=== PATIENT | male | born 1945 | race Caucasian/White ===

== ENCOUNTER 2019-04-16 10:57 | Emergency (ER) | payer MEDICARE, BC ==
--- OUTSIDE RECORDS SUMMARY | 2019-04-16 11:51 | XMS REPORT | Continuity of Care Document ---
:1945 External Reference #:[id number] Author Name Alex Harrington MD Address [address] [place] [id number] Problems Description No Information Available Social History Type Date Description Comments Sex Unknown Tobacco Use Start: Unknown End: Former Cigarette Smoker X 30 YRS 1 PPD QUIT Unknown 20 YRS AGO. ETOH Use Rarely consumes alcohol Recreational Drug Use Denies Drug Use Tobacco Use Start: Unknown Patient was a smoker, current status is unknown Tobacco Use Start: Unknown End: Patient is a former smoker Smoking Status Reviewed: 05/05/18 Patient is a former smoker Allergies, Adverse Reactions, Alerts Description No Known Drug Allergies Medications Active Medications SIG Qnty Indications Ordering Date Provider Onetouch Ultra Blue test bg twice daily 100units Len, 11/30/2018 and as needed TONY Gonzalez Strips Insulin use twice a day with 200units Len, 11/30/2018 Syringe-Needle insulin TONY Gonzalez U-100 31G X 1/4" 1 ML Misc Lancets 30G testing three times a 100units Len, 11/28/2018 30G day e11.649 TONY Gonzalez Misc Pioglitazone HCL take one tablet by 90tabs Len, 02/01/2017 mouth every evening MD Alex 45mg Tablets Atorvastatin take one tablet by 90tabs Len, 09/29/2015 Calcium mouth every day/ due TONY Gonzalez 80mg for ltp bloodwork Tablets Cpap and related supplies. 1units G47.33 Len, 01/22/2014 Device juan luis:99mos setting 15 TONY Gonzalez Novolin 70/30 inject 69 units 90units Len, 06/26/2013 subcutaneously in am TONY Gonzalez (70-30)100Unit/ML 67 units in the Suspension evening Enalapril Maleate 1 by mouth every day. 90tabs Len, 08/05/2009 TONY Gonzalez 20mg Tablets Nitrostat 1 tab sl stat as 1BTL Len, 06/05/2009 0.4mg needed for c.p may MD Alex Tablets Sub repeat q5min x 2 if no relief after 3 tabs call 911. Aspirin 1 PO qd Len, 05/27/2008 325mg MD Alex Tablets Metoprolol take one tablet by 90tabs Len, 05/27/2008 Succinate ER mouth every day TONY Gonzalez 25mg Tablets ER 24HR Furosemide 1 by mouth every day Unknown 40mg Tablets History Medications Freestyle Lite Test use as directed 100units Lisa Harrington, 2018 - three times a day [employer] 11/30/2018 Strips Immunizations CPT Code Status Date Vaccine Lot # [id number] Given 07/17/2018 Pneumococcal 23 Immunization Adult Or [id number] Immunosuppressed Patient 54756 Given 04/04/2018 Fluzone Highdose Age 65 And Over Preservative & Antibiotic Free 95205 Given 05/21/2017 Prevnar 13 Pneumococal Conjugate Vaccine [id number] 62268 Given 04/20/2017 Afluria Or Fluvirin Flu Vac Intramuscular 51876 Given 04/26/2016 Afluria Or Fluvirin Flu Vac Intramuscular 64483 Given 04/17/2016 Afluria Or Fluvirin Flu Vac Intramuscular 98502 Given 04/22/2015 Influenza Vac, Quadrivalent, Split, 0.5mL Dosage, [id number] Im Use 45361 Given 05/07/2014 Pneumococcal 23 Immunization Adult Or [id number] Immunosuppressed Patient Q2038 Given 06/20/2013 Fluzone Trivalent Immunization [id number] Q2038 Given 04/17/2012 Fluzone Trivalent Immunization [id number] Q2038 Given 04/15/2011 Fluzone Trivalent Immunization [id number] 70801 Given 05/19/2010 Tdap (Adacel) Ages 7 And Above Only [id number] 82047 Given 04/27/2010 Afluria Or Fluvirin Flu Vac Intramuscular 52832 Given 04/27/2010 Afluria Or Fluvirin Flu Vac Intramuscular [id number] 67048 Given 06/24/2009 Afluria Or Fluvirin Flu Vac Intramuscular 39010 Given 06/03/2009 Administration Swine Flu Vaccine [id number] 07155 Given 05/27/2008 Afluria Or Fluvirin Flu Vac Intramuscular [id number] 62150 Refused 12/21/2016 Prevnar 13 Pneumococal Conjugate Vaccine Vital Signs Date Vital Result Comment 03/23/2019 2:12pm Body Temperature 98.0 F Weight 277.00 lb Heart Rate 80 /min BP Systolic 134 mmHg BP Diastolic 80 mmHg Respiratory Rate 16 /min Height 66 inches 5'6" O2 % BldC Oximetry 95 % BMI (Body Mass Index) 44.7 kg/m2 01/02/2019 9:10am Body Temperature 97.7 F Weight 282.00 lb Heart Rate 75 /min BP Systolic 122 mmHg BP Diastolic 58 mmHg Respiratory Rate 14 /min Height 66 inches 5'6" O2 % BldC Oximetry 97 % BMI (Body Mass Index) 45.5 kg/m2 Results Test Date Facility Test Result H/L Range Note [facility] <pending> finding Hemoglobin A1c 01/02/2019 [place] Hemoglobin A1c 7.3 % High 4.1-5.9 Estimated Average Glucose Calc 163 mg/dL High 71-140 Lipid [facility] Cholesterol 148 mg/dL 50-199 Triglycerides 56 mg/dL 30-200 HDL 45 mg/dL 29-71 1 Chol/ HDL Ratio 3.3 ratio Low 4.0-6.7 VLDL 11 mg/dL 2-29 LDL (Calc) 92 mg/dL 20-99 2 Hemoglobin A1c 11/28/2018 [facility] Hemoglobin A1c 7.2 % High 4.1-5.9 Estimated Average Glucose Calc 160 mg/dL High 71-140 1 Per NCEP ATP III Guidelines: Results lower than 40 mg/dL are suggestive of increased risk for coronary artery disease. Results > or = to 60 mg/dL are considered a negative risk factor. 2 Per NCEP ATP III Guidelines: Normal Population <130 Patients with medical conditions: CHD/DM Optimal: <100 Borderline high: 130-159 High: 160-189 Very high: >189 Procedures Date Code Description Status 06/24/2011 76660109 Colonoscopy Completed Medical Devices Description No Information Available Encounters Type Date Location Provider Dx Diagnosis Office Visit 01/02/2019 Lisa Pat NP E66.01 Morbid (severe) 9:00a obesity due to excess calories Z68.42 Body mass index (BMI) 45.0-49.9, adult E11.9 Type 2 diabetes mellitus without complications E11.649 Type 2 diabetes mellitus with hypoglycemia without coma E78.00 Pure hypercholesterolemia, unspecified G47.33 Obstructive sleep apnea (adult) (pediatric) Assessments Date Code Description Provider 03/23/2019 E66.01 Morbid (severe) obesity due to excess Alex Harrington MD calories 03/23/2019 S33.5xxA Sprain of ligaments of lumbar spine, initial Alex Harrington MD encounter 03/23/2019 E11.9 Type 2 diabetes mellitus without Alex Harrington MD complications 03/23/2019 E78.00 Pure hypercholesterolemia, unspecified Alex Harrington MD 03/23/2019 G47.33 Obstructive sleep apnea (adult) (pediatric) Alex Harrington MD 03/23/2019 Z68.41 Body mass index (BMI) 40.0-44.9, adult Alex Harrington MD 03/23/2019 I10 Essential (primary) hypertension Alex Harrington MD 01/02/2019 E66.01 Morbid (severe) obesity due to excess Lisa Harrington, TONY calories 01/02/2019 Z68.42 Body mass index (BMI) 45.0-49.9, adult Lisa Harrington NP 01/02/2019 E11.9 Type 2 diabetes mellitus without Lisa Harrington NP complications 01/02/2019 E11.649 Type 2 diabetes mellitus with hypoglycemia Lisa Harrington NP without coma 01/02/2019 E78.00 Pure hypercholesterolemia, unspecified Lisa Harrington NP 01/02/2019 G47.33 Obstructive sleep apnea (adult) (pediatric) Lisa Harrington NP 01/02/2019 E11.9 Type 2 diabetes mellitus without [facility] complications 01/02/2019 E11.649 Type 2 diabetes mellitus with hypoglycemia [facility] without coma 01/02/2019 E78.00 Pure hypercholesterolemia, unspecified [facility] 11/28/2018 E11.9 Type 2 diabetes mellitus without Alex Harrington MD complications 11/28/2018 E11.9 Type 2 diabetes mellitus without Nurse Schedule Loc 8 complications 11/28/2018 E11.649 Type 2 diabetes mellitus with hypoglycemia Lisa Harrington NP without coma 11/28/2018 E11.9 Type 2 diabetes mellitus without [facility] complications Plan of Treatment 03/23/2019 - Alex Harrington MDE66.01 Morbid (severe) obesity due to excess caloriesComments:CONTINUE WORKING ON DIET AND EXERCISE RECOMMEND WEIGHT WATCHERS AND OFFERED AN APPOINTMENT WITH OUR NITRITIONIST. PATIENT WILL CALL FOR THIS APPT.Follow up:Followup:.S33.5xxA Sprain of ligaments of lumbar spine, initial encounterFollow up:Followup:.E11.9 Type 2 diabetes mellitus without complicationsFollow up:Followup:.E78.00 Pure hypercholesterolemia, mfirflanuskC83.33 Obstructive sleep apnea (adult) (pediatric)Comments:Condition stable cont CPAP.Follow up:Followup:.Z68.41 Body mass index (BMI) 40.0-44.9, [id number] Essential (primary) hypertensionAllReferral:Valentin Sanchez MD, Otolaryngology Functional Status Description No Information Available Mental Status Description No Information Available Referrals Refer to Dr Reason for Referral Status Appt Date Valentin Sanchez MD Needs a new sleep study to get CPAP supplies, Created insurance has changed and pt's baseline sleep study was done in 1991 and I cannot track down that report anywhere! Faxed referral form and info to Dr Sanchez's office, waiting to hear back with appt info. 03/23/[address] [place] [id number] [phone]
--- NOTE | 2019-04-16 12:17 | UC ---
Back Pain HPI - HPI Summary HPI Summary: 1. L low back pain x 1.5 months. notices it most with lying down and then it improves when he is up and about. he saw his pcp who dx a pulled mm at onset but it is not improving. no abdominal pain, dysuria. no saddle anesthesia, numb/weak extremities or bowel/bladder dysfunction. no rash. no hx injury. 2. now having a 2 day hx of some R medial scapular border discomfort with deep breaths and when he stretches his R arm over his chest. no cough, sob or CP. no nausea or diaphoresis. no fever or chills. no worsening with exertion. no meal related. no calf pain, swelling or hx dvt/pE. - History of Current Complaint Chief Complaint: UCGeneralIllness Stated Complaint: BACK PAIN Time Seen by Provider: 04/16/19 12:10 Hx Obtained From: Patient Pain Intensity: 0 Associated Signs And Symptoms: Negative: Fever, Weakness, Numbness, Tingling, Abdominal Pain, Flank Pain, Bladder Incontinence, Bowel Incontinence - Allergies/Home Medications Allergies/Adverse Reactions: Allergies Allergy/AdvReac Type Severity Reaction Status Date / Time insulin Allergy Rash Uncoded 04/16/19 12:01 Home Medications: Home Medications Aspirin EC TAB* [Ecotrin EC Low Dose 81 MG*] 1 tab DAILY 04/16/19 [History Confirmed 04/16/19] Atorvastatin* [Lipitor 80 MG*] 1 tab DAILY 04/16/19 [History Confirmed 04/16/19] Enalapril TAB* [Vasotec TAB*] 1 tab DAILY 04/16/19 [History Confirmed 04/16/19] Insulin NPH Hum/Reg Insulin Hm [Novolin 70-30 Flexpen] 60 - 63 units DAILY 04/16 [History Confirmed 04/16/19] Metoprolol Tartrate TAB* [Lopressor TAB*] 1 tab DAILY 04/16/19 [History Confirmed 04/16/19] Pioglitazone TAB* [Actos TAB*] 45 mg DAILY 04/16/19 [History Confirmed 04/16/19] PMH/Surg Hx/FS Hx/Imm Hx Endocrine History: Diabetes, Dyslipidemia Cardiovascular History: Hypertension - Surgical History Surgical History: Yes Surgery Procedure, Year, and Place: quad bypass; defibrillator. hernia - Family History Known Family History: Positive: Non-Contributory - Social History Alcohol Use: None Substance Use Type: None Smoking Status (MU): Former Smoker Review of Systems All Other Systems Reviewed And Are Negative: No Constitutional: Negative: Fever, Chills Skin: Negative: Rash Respiratory: Negative: Shortness Of Breath, Cough Cardiovascular: Negative: Palpitations, Chest Pain Gastrointestinal: Negative: Abdominal Pain, Vomiting, Diarrhea, Nausea Genitourinary: Negative: Dysuria Musculoskeletal: Negative: Decreased ROM Neurological: Negative: Weakness, Paresthesia, Numbness Physical Exam Triage Information Reviewed: Yes Appearance: Well-Appearing Vital Signs: Initial Vital Signs Temp 98.3 F 04/16/19 12:01 Pulse 73 04/16/19 12:01 Resp 16 04/16/19 12:01 BP 118/58 04/16/19 12:01 Pulse Ox 100 04/16/19 12:01 Vital Signs Reviewed: Yes Eyes: Positive: Conjunctiva Clear ENT: Positive: Normal ENT inspection Neck: Positive: Supple, Nontender, No Lymphadenopathy, Other: - c-spine non tender. Respiratory: Positive: Chest non-tender, Lungs clear, Normal breath sounds, No respiratory distress Cardiovascular: Positive: RRR, No Murmur, Pulses Normal - BUE's. Abdomen Description: Positive: Nontender, No Organomegaly, Soft, Other: - soft, non tender umbilical hernia.. Negative: CVA Tenderness (R), CVA Tenderness (L) , Distended, Guarding, Pulsatile Mass Bowel Sounds: Positive: Present Musculoskeletal: Positive: No Edema, Other: - Back= no rash, deformity or tenderness. ROM intact throuout. 5/5 strength, 2+ reflexes and sensation intact x4. steady gait. No saddle anesthesia. Neurological: Positive: Alert Psychological: Positive: Age Appropriate Behavior Skin Exam: Normal Diagnostics - Radiology No standard instances Radiology Interpretation Completed By: Radiologist - CXR IMPRESSION: HYPERINFLATION, CONSISTENT WITH COPD. NO ACTIVE CARDIOPULMONARY DISEASE.LUMBAR SPINE IMPRESSION: 1. DIFFUSE ADVANCED DISC DISEASE AND OSTEOARTHRITIS. 2. ATHEROSCLEROSIS. 3. CALCULI OVERLYING THE RIGHT HEMIABDOMEN. THE DIFFERENTIAL INCLUDES NEPHROLITHIASIS AND CHOLELITHIASIS Back Pain Course/Dx - Course Course Of Treatment: Hx and PE d/w Dr Whitney. will do dry CT abd/pelvis. Results of workup d/w pt. - Differential Dx/Diagnosis Differential Diagnosis/HQI/PQRI: Other - non toxic. no acute abdomen. no concern for cauda equina or infection. no cp, sob, exertional discomfort, tachycardia or hypoxia plus no leg swelling or calf pain thus do not feel PE of cardiac in nature. CXR=nad. R medial scapular border discomfort has no association with meals; however, pt does have a biliary vs renal stone on pain xray. A Dry CT= showed some L renal stones but none on R and no gallstones(see full report that is extensive). Pt is non toxic and has no acute abdomen thus he is to f/u with his pcp rachelle and go to the ER for any changes or worsening. I did advise pt of unlikely PE and cardiac. Pt states he has no concern for either and no desire to go to the ER. He will go to the ER for any changes or worsening. Provider Diagnosis: Low back pain, Osteoarthritis of lower back, Upper back pain on right side Discharge ED - Sign-Out/Discharge Documenting (check all that apply): Patient Departure All imaging exams completed and their final reports reviewed: Yes - Discharge Plan Condition: Stable Disposition: HOME Patient Education Materials: Back Pain (ED) Referrals: Alex Harrington MD [Primary Care Provider] - As Soon As Possible Additional Instructions: GO TO THE ER FOR ANY CHANGES OR WORSENING - Billing Disposition and Condition Condition: STABLE Disposition: Home
[2019-04-16 14:22] VITALS: BP 119/55
== END 2019-04-16 15:09 | disposition home or self-care (01) ==
LOC: UCCORT 10:57
DX: M47.897 Other spondylosis, lumbosacral region (principal); M54.6 Pain in thoracic spine; Z88.8 Allergy status to other drugs, medicaments and biological substances; E11.9 Type 2 diabetes mellitus without complications; Z79.4 Long term (current) use of insulin; I10 Essential (primary) hypertension; E78.5 Hyperlipidemia, unspecified; Z87.891 Personal history of nicotine dependence
CPT/HCPCS: 71046; 72110; 74176; 99212; G0463